=== PATIENT | male | born 1950 | race African-American/Black ===

== ENCOUNTER 2016-10-12 14:30 | Emergency (ER) | payer MEDICARE ==
[2016-10-12 14:54] VITALS: BP 165/98
--- NOTE | 2016-10-12 15:37 | ER Document Report ---
HPI - HPI Pain Level: 4 Notes: Patient is a 65-year-old male presents to the ED complaining of itchiness between his toes 1 month. Patient also states that he has had bilateral heel pain chronically with a history of a heel spur. He has been using ibuprofen with minimal relief, and he has tried some over the counter medication without any relief as well. Denies any injury. Patient states that he is able to ablate without any difficulties. On occasion he will noticed some swelling near the rashes. He has not noticed any purulent discharge. He still eating and drinking without any problems. Patient states that he does not go see a doctor does not have a PCM. Denies any drug allergies. He does not take any medications daily. Denies any significant past medical history otherwise or any surgeries. Patient does smoke but does not do any illicit drugs. He has been trying some Epsom salts soaks as well. Denies any fever, headaches, URI, sore throat, chest pain, palpitations, syncope, cough, wheeze, shortness of breath, abdominal pain, nausea/vomiting/diarrhea, dysuria, urinary retention, polyuria, polydipsia, hematuria, low back pain, loss of control bowel or bladder , muscle weakness/paralysis. - ROS Notes: REVIEW OF SYSTEMS: CONSTITUTIONAL : Denies fever, chills, or sweats. Denies recent illness. EENT: Denies eye, ear, throat, or mouth pain or symptoms. Denies nasal or sinus congestion or discharge. Denies throat, tongue, or mouth swelling or difficulty swallowing. CARDIOVASCULAR: Denies chest pain. Denies palpitations or racing or irregular heart beat. Denies ankle edema. RESPIRATORY: Denies cough, cold, or chest congestion. Denies shortness of breath, difficulty breathing, or wheezing. GASTROINTESTINAL: Denies abdominal pain or distention. Denies nausea, vomiting , or diarrhea. Denies blood in vomitus, stools, or per rectum. Denies black, tarry stools. Denies constipation. GENITOURINARY: Denies difficulty urinating, painful urination, burning, frequency, blood in urine, or discharge. MUSCULOSKELETAL: see hpi SKIN: see hpi NEUROLOGICAL: Denies confusion or altered mental status. Denies passing out or loss of consciousness. Denies dizziness or lightheadedness. Denies headache. Denies weakness or paralysis or loss of use of either side. Denies problems with gait or speech. Denies sensory loss, numbness, or tingling. Denies seizures. PSYCHIATRIC: Denies anxiety or stress. Denies depression, suicidal ideation, or homicidal ideation. ALL OTHER SYSTEMS REVIEWED AND NEGATIVE. Dictation was performed using [employer] voice recognition software - DERM Skin Color: Normal Past Medical History - Social History Smoking Status: Current Every Day Smoker Family History: Reviewed & Not Pertinent - Past Medical History Cardiac Medical History: Reports: Hx Hypertension Renal/ Medical History: Denies: Hx Peritoneal Dialysis - Immunizations Hx Diphtheria, Pertussis, Tetanus Vaccination: No Vertical Provider Document - CONSTITUTIONAL Agree With Documented VS: Yes Notes: PHYSICAL EXAMINATION: GENERAL: Well-appearing, well-nourished and in no acute distress. LUNGS: Breath sounds clear to auscultation bilaterally and equal. No wheezes rales or rhonchi. HEART: Regular rate and rhythm without murmurs, rubs, gallops. Musculoskeletal: LE's b/l: FROM to passive/active. Strength 5+/5. Extremities: No cyanosis, clubbing, or edema b/l. Peripheral pulses 2+. Capillary refill less than 3 seconds. NEUROLOGICAL: Cranial nerves grossly intact. Normal speech, normal gait. Normal sensory, motor exams PSYCH: Normal mood, normal affect. SKIN: b/l feet b/w 3-4th, 4-5th digits, + fungal infection. No purulent discharge, erythema, streaks, induration, or tenderness. - INFECTION CONTROL TRAVEL OUTSIDE OF THE [place] IN LAST 30 DAYS: No - RESPIRATORY O2 Sat by Pulse Oximetry: 97 Course - Re-evaluation Re-evalutation: 10/12/16 18:05 Patient is an afebrile, well-hydrated, 65-year-old male presents to the ED with tinea pedis bilaterally. Vitals are stable. PE otherwise unremarkable. Low suspicion for any systemic infection, septic joint, sepsis. I will cover him with clotrimazole to use as directed. Conservative measures otherwise for symptoms. Recheck/establish with PCM recheck in 1-2 weeks along with considering a consult from podiatry. Return to ED with any worsening/ concerning symptoms as reviewed in discharge. Patient is in agreement. - Vital Signs Vital signs: Temp Pulse Resp BP Pulse Ox 97.8 F 67 18 165/98 H 97 10/12/16 14:52 10/12/16 14:52 10/12/16 14:52 10/12/16 14:52 10/12/16 14:52 Discharge - Discharge Clinical Impression: Tinea pedis of both feet Condition: Stable Disposition: HOME, SELF-CARE Instructions: Athletes Foot ([facility]) Additional Instructions: Keep the feet clean epsom salt soaks Use cream as directed for 2 weeks Recheck with PCM in the next weeks (or clinics provided in the next 1-2 weeks) Return to the ED with any worsening symptoms and/or development of fever, headache, chest pain, palpitations, syncope, shortness of breath, trouble breathing, abdominal pain, n/v/d, muscle weakness/paralysis, numbness/tingling, or any abscess, purulent discharge, red streaks, other worsening symptoms that are concerning to you. Prescriptions: Clotrimazole [Athletic Foot Cream] 1 applic TP BID #30 gm Forms: Elevated Blood Pressure, Smoking Cessation Education Referrals: [facility] [Provider Group] - Follow up as needed [facility] [Provider Group] - Follow up as needed MODE ESTEVEZ DPM [ACTIVE STAFF] - Follow up as needed
== END 2016-10-12 15:50 | disposition home or self-care (01) ==
LOC: ER 14:30
DX: B35.3 Tinea pedis (principal); I10 Essential (primary) hypertension; F17.200 Nicotine dependence, unspecified, uncomplicated; Z87.39 Personal history of other diseases of the musculoskeletal system and connective tissue
CPT/HCPCS: 99283

== ENCOUNTER 2016-12-11 08:29 | Emergency (ER) | payer MEDICARE, MEDICAID ==
[2016-12-11] MEDS ORDERED: KETOROLAC TROMETHAMINE 60 MG/2 ML SDV IM ONE (09:09)
--- NOTE | 2016-12-11 11:00 | RADIOLOGY REPORT (SQ) ---
EXAM DESCRIPTION: ELBOW RIGHT OVER 2 VIEWS COMPLETED DATE/TIME: 12/11/2016 10:08 am REASON FOR STUDY: right elbow pain COMPARISON: None. NUMBER OF VIEWS: Four views of the right elbow. LIMITATIONS: None. FINDINGS: No acute fracture or bone lesion, subluxation or dislocation or effusion. Chronic calcifi cations medially and laterally consistent with epicondylitis. OTHER: No other significant finding. IMPRESSION: Chronic medial and lateral epicondylitis. TECHNICAL DOCUMENTATION: JOB ID: [id number]
--- NOTE | 2016-12-11 11:44 | ER Document Report ---
ED General - General Chief Complaint: Arm Pain Stated Complaint: ARM PAIN Time Seen by Provider: 12/11/16 09:01 TRAVEL OUTSIDE OF THE [place] IN LAST 30 DAYS: No - HPI Patient complains to provider of: Right elbow pain Notes: Patient coming in for evaluation of right elbow pain. Patient states is ongoing for approximately the past 2 weeks patient denies any trauma. Patient states is a recurring issue. Patient denies any overuse patient states he is currently retired. Patient denies any fevers chills nausea vomiting diarrhea denies any swelling or warmth at the site. - Related Data Allergies/Adverse Reactions: No Known Allergies Allergy (Verified 12/11/16 08:33) Past Medical History - Social History Smoking Status: Current Every Day Smoker Chew tobacco use (# tins/day): - 15 Frequency of alcohol use: Social Drug Abuse: None Family History: Reviewed & Not Pertinent - Past Medical History Cardiac Medical History: Reports: Hx Hypertension Renal/ Medical History: Denies: Hx Peritoneal Dialysis Surgical Hx: Negative - Immunizations Hx Diphtheria, Pertussis, Tetanus Vaccination: No Review of Systems - Review of Systems Constitutional: No symptoms reported EENT: No symptoms reported Cardiovascular: No symptoms reported Respiratory: No symptoms reported Gastrointestinal: No symptoms reported Genitourinary: No symptoms reported Male Genitourinary: No symptoms reported Musculoskeletal: Other - Right elbow pain Skin: No symptoms reported Hematologic/Lymphatic: No symptoms reported Neurological/Psychological: No symptoms reported Physical Exam - Vital signs Vitals: Temp Pulse Resp BP Pulse Ox 97.6 F 78 24 H 147/94 H 96 12/11/16 08:35 12/11/16 08:35 12/11/16 08:35 12/11/16 08:35 12/11/16 08:35 Interpretation: Normal - General General appearance: Appears well, Alert - HEENT Head: Normocephalic, Atraumatic Eyes: Normal Pupils: PERRL - Respiratory Respiratory status: No respiratory distress Chest status: Nontender Breath sounds: Normal Chest palpation: Normal - Cardiovascular Rhythm: Regular Heart sounds: Normal auscultation Murmur: No - Abdominal Inspection: Normal Distension: No distension Bowel sounds: Normal Tenderness: Nontender Organomegaly: No organomegaly - Back Back: Normal, Nontender - Extremities General upper extremity: Normal inspection, Tender - Tenderness to palpation of the right elbow along the lateral and medial epicondyles, Normal color, Normal ROM, Normal temperature. No: Nontender General lower extremity: Normal inspection, Nontender, Normal color, Normal ROM , Normal temperature, Normal weight bearing. No: Serafin's sign - Neurological Neuro grossly intact: Yes Cognition: Normal Orientation: AAOx4 Dave Coma Scale Eye Opening: Spontaneous [place] Coma Scale Verbal: Oriented Dave Coma Scale Motor: Obeys Commands [place] Coma Scale Total: 15 Speech: Normal Motor strength normal: LUE, RUE, LLE, RLE Sensory: Normal - Psychological Associated symptoms: Normal affect, Normal mood - Skin Skin Temperature: Warm Skin Moisture: Dry Skin Color: Normal Course - Re-evaluation Re-evalutation: 12/11/16 13:30 X-ray shows chronic epicondylitis which is consistent with the patient's examination. We will give Ultram for pain control and Motrin for anti- inflammatory. Patient was educated that he has chronic condition will need follow-up primary care physician patient states understanding patient will be discharged home. - Vital Signs Vital signs: Temp Pulse Resp BP Pulse Ox 97.8 F 62 15 167/97 H 100 12/11/16 11:56 12/11/16 11:56 12/11/16 11:56 12/11/16 11:56 12/11/16 11:56 Discharge - Discharge Clinical Impression: Medial epicondylitis Qualifiers: Laterality: right Qualified Code(s): M77.01 - Medial epicondylitis, right elbow Condition: Good Disposition: HOME, SELF-CARE Instructions: Tennis Elbow (Lateral Epicondylitis) ([facility]) Additional Instructions: Take medication as prescribed. Return to the ER symptoms worsen. Your x-ray shows that she has chronic inflammation of her elbow which will need to be followed and care forwarded by by primary care physician or orthopedic doctor. You may place ice packs on the elbow also to treat with heating pads. Prescriptions: Ibuprofen [Motrin 600 Mg Tablet] 600 mg PO TID #30 tablet Tramadol HCl [Ultram 50 mg Tablet] 50 mg PO ASDIR PRN #20 tablet PRN Reason: Forms: Return to Work
[2016-12-11 11:59] VITALS: BP 167/97
== END 2016-12-11 12:00 | disposition home or self-care (01) ==
LOC: ER 08:29
DX: M77.01 Medial epicondylitis, right elbow (principal); M25.521 Pain in right elbow; F17.210 Nicotine dependence, cigarettes, uncomplicated; I10 Essential (primary) hypertension
CPT/HCPCS: 99283; 96372; 73080; J1885

== ENCOUNTER 2017-03-01 02:24 | Emergency (ER) | payer MEDICARE, MEDICAID ==
[2017-03-01 02:36] VITALS: BP 151/87
[2017-03-01] MEDS ORDERED: ACETAMINOPHEN 325 MG TABLET PO ONE (02:55)
[2017-03-01] MEDS ORDERED: IBUPROFEN 600 MG TABLET PO ONE (02:55)
--- NOTE | 2017-03-01 03:00 | RADIOLOGY REPORT (SQ) ---
EXAM DESCRIPTION: ELBOW RIGHT OVER 2 VIEWS COMPLETED DATE/TIME: 03/01/2017 2:49 am REASON FOR STUDY: Pain s/p injury, fell on elbow yesterday. COMPARISON: Right elbow x-ray 12/11/2016. NUMBER OF VIEWS: Four views. TECHNIQUE: AP, lateral, and both oblique radiographic images acquired of the right elbow. LIMITATIONS: None. FINDINGS: MINERALIZATION: Normal. BONES: There is a linear lucency at the radial head, a nondisplaced fracture cannot be excluded. No other acute fracture or dislocation is seen. Chronic calcifications are again noted at the medial an d lateral distal humerus. JOINT: No effusion. SOFT TISSUES: The soft tissues are unremarkable. IMPRESSION: Linear lucency at the radial head, a nondisplaced fracture cannot be excluded. Please c orrelate with point tenderness. TECHNICAL DOCUMENTATION: JOB ID: [id number] [employer]- All Rights Reserved
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
[2017-03-01] MEDS ORDERED: HYDROCODONE/ACETAMINOPHEN 5-325 MG 6 TAB/DSPK PO PRN (03:46)
== END 2017-03-01 04:05 | disposition home or self-care (01) ==
LOC: ER 02:24
DX: S42.401A Unspecified fracture of lower end of right humerus, initial encounter for closed fracture (principal); Y09 Assault by unspecified means; M25.521 Pain in right elbow; I10 Essential (primary) hypertension
CPT/HCPCS: 99283; 73080; 29105; A9270 ×3

== ENCOUNTER 2018-12-08 09:37 | Emergency (ER) | payer MEDICARE, MEDICAID ==
[2018-12-08 09:47] VITALS: BP 135/80
[2018-12-08] MEDS ORDERED: DOXYCYCLINE HYCLATE 100 MG TABLET PO ONE (09:58)
[2018-12-08] MEDS ORDERED: CEPHALEXIN 500 MG CAPSULE PO ONE (10:00)
--- NOTE | 2018-12-08 10:04 | ER Document Report ---
HPI - HPI Patient complains to provider of: rash L leg Time Seen by Provider: 12/08/18 09:50 Pain Level: 5 Context: Pleasant, healthy 68-year-old male presents the emergency department with a rash on his anterior left leg over the herrera. Patient states that he thinks he got bit by something 2 days ago because he is been out of town for a couple of months and is the first time he slept in his bed. Patient states that it got acutely worse this morning. Patient states that it is tender to the touch, warm, and the redness has spread to the size of approximately 3 x 6 inches. Patient denies any fevers or chills, patient is able to bear weight on the leg, patient denies any posterior tenderness or circumferential redness, denies any unilateral leg swelling, denies any acute shortness of breath or chest pain. No other complaints - CONSTITUTIONAL Constitutional: DENIES: Fever, Chills Past Medical History - Social History Smoking Status: Current Every Day Smoker Chew tobacco use (# tins/day): No Drug Abuse: None Family History: Reviewed & Not Pertinent Patient has suicidal ideation: No Patient has homicidal ideation: No - Past Medical History Cardiac Medical History: Reports: Hx Hypertension Renal/ Medical History: Denies: Hx Peritoneal Dialysis - Immunizations Hx Diphtheria, Pertussis, Tetanus Vaccination: No Vertical Provider Document - CONSTITUTIONAL Notes: PHYSICAL EXAMINATION: Reviewed vital signs and charting by RN GENERAL: Alert, interacts well. No acute distress. HEAD: Normocephalic, atraumatic. EYES: Pupils equal and round. Extraocular movements intact. ENT: Oral mucosa moist, tongue midline. NECK: Full range of motion. Trachea midline. LUNGS: Clear to auscultation bilaterally, no wheezes, rales, or rhonchi. No respiratory distress. HEART: Regular rate and rhythm. No murmur ABDOMEN: soft, non-tender. No distention. Bowel sounds present EXTREMITIES: Moves all 4 extremities spontaneously. No edema, No cyanosis. PSYCH: Normal affect, normal mood. SKIN: Warm, dry, normal turgor. Approximately 3 inch x 6 inch area of erythema over the anterior left distal lower extremity that is tender to touch and warm to touch. No area of induration, no evidence of circumferential erythema or swelling. - INFECTION CONTROL TRAVEL OUTSIDE OF THE [place] IN LAST 30 DAYS: No Course - Re-evaluation Re-evalutation: 12/08/18 09:59 Patient presents with symptoms most consistent with an acute cellulitis. Vitals within normal limits. Patient does not meet sepsis criteria is overall very well in appearance. Exam and history are not consistent with DVT. Patient will be started on coverage for both staph and strep. At this time will discharge with return precautions and follow-up recommendations. Verbal discharge instructions given a the bedside and opportunity for questions given. Medication warnings reviewed. Patient is in agreement with this plan and has verbalized understanding of return precautions and the need for primary care follow-up in the next 24-72 hours. - Vital Signs Vital signs: Temp Pulse Resp BP Pulse Ox 98.2 F 95 16 135/80 H 100 12/08/18 09:45 12/08/18 09:45 12/08/18 09:45 12/08/18 09:45 12/08/18 09:45 Discharge - Discharge Clinical Impression: Cellulitis Qualifiers: Site of cellulitis: extremity Site of cellulitis of extremity: lower extremity Laterality: left Qualified Code(s): L03.116 - Cellulitis of left lower limb Condition: Good Disposition: HOME, SELF-CARE Additional Instructions: The rash is likely due to infection of your skin. You need to take the antibiotics as prescribed. Do not stop even if the rash goes away until you have completed all the antibiotics. The area of redness was traced out here in the emergency department with a marking pen. You need to return to emergency department if the redness spreads outside of this area by more than 2 cm in any direction. You should also return if you develop fevers with temperature greater than 101, persistent vomiting, worsening pain, or have any other symptoms that are concerning to you. Please follow-up with Dr. Ruiz Monday morning for a wound recheck. If you are unable to see him please return to the emergency department for a wound recheck.
== END 2018-12-08 10:09 | disposition home or self-care (01) ==
LOC: ER 09:37
DX: L03.116 Cellulitis of left lower limb (principal); F17.200 Nicotine dependence, unspecified, uncomplicated; I10 Essential (primary) hypertension
CPT/HCPCS: 99282; A9270 ×2

== ENCOUNTER 2018-12-12 12:57 | Emergency (ER) | payer MEDICARE, MEDICAID ==
--- NOTE | 2018-12-12 13:50 | ER Document Report ---
ED Medical Screen (RME) - General Chief Complaint: Leg Swelling Stated Complaint: LEG PAIN Time Seen by Provider: 12/12/18 13:46 Primary Care Provider: CYRUS ALEXIS MD [Primary Care Provider] - Follow up as needed Mode of Arrival: Ambulatory Information source: Patient Notes: This 68-year-old male presents emergency department with left lower leg anterior cellulitis. Patient believes may be a spider bit him. Patient has been to this emergency department into his provider treated with 2 different antibiotics and the erythema on the pain are spreading. Patient is not a diabetic. No complaints of fever vomiting. I have greeted and performed a rapid initial assessment of this patient. A comprehensive ED assessment and evaluation of the patient, analysis of test results and completion of the medical decision making process will be conducted by additional ED providers. Dictation of this chart was performed using voice recognition software; therefore, there may be some unintended grammatical errors. TRAVEL OUTSIDE OF THE [place] IN LAST 30 DAYS: No - Related Data Allergies/Adverse Reactions: No Known Allergies Allergy (Verified 12/12/18 12:57) Past Medical History - Social History Chew tobacco use (# tins/day): No Frequency of alcohol use: Heavy Drug Abuse: Cocaine - Past Medical History Cardiac Medical History: Reports: Hx Hypertension Renal/ Medical History: Denies: Hx Peritoneal Dialysis - Immunizations Hx Diphtheria, Pertussis, Tetanus Vaccination: No Physical Exam - Vital signs Vitals: Temp Pulse Resp BP Pulse Ox 98.4 F 88 18 152/77 H 94 12/12/18 13:00 12/12/18 13:00 12/12/18 13:00 12/12/18 13:00 12/12/18 13:00 Course - Vital Signs Vital signs: Temp Pulse Resp BP Pulse Ox 98.4 F 88 18 152/77 H 94 12/12/18 13:00 12/12/18 13:00 12/12/18 13:00 12/12/18 13:00 12/12/18 13:00 Doctor's Discharge - Discharge Referrals: CYRUS ALEXIS MD [Primary Care Provider] - Follow up as needed
--- NOTE | 2018-12-12 14:31 | RADIOLOGY REPORT (SQ) ---
EXAM DESCRIPTION: TIBIA FIBULA LEFT COMPLETED DATE/TIME: 12/12/2018 2:20 pm REASON FOR STUDY: infection pain COMPARISON: None. NUMBER OF VIEWS: Two views. TECHNIQUE: Two radiographic images acquired of the left tibia and fibula to include the knee and ank le in at least one projection. LIMITATIONS: None. FINDINGS: MINERALIZATION: Normal. BONES: No acute fracture or dislocation. No osteolysis. SOFT TISSUES: No swelling, subcutaneous emphysema, or radiopaque foreign body. OTHER: Vascular calcifications. IMPRESSION: No acute osseous abnormality of the left tibia and fibula. TECHNICAL DOCUMENTATION: JOB ID: [id number] [employer]- All Rights Reserved Reading location - IP/workstation name: [email or web address]
[2018-12-12 14:59] LABS: ABSOLUTE BASOPHILS # (AUTO) 0.1 10^3/uL (0.0-0.2); ABSOLUTE EOSINOPHILS # (AUTO) 0.2 10^3/uL (0.0-0.6); ABSOLUTE LYMPHOCYTES (AUTO) 1.3 10^3/uL (0.5-4.7); ABSOLUTE MONOCYTES (AUTO) 0.8 10^3/uL (0.1-1.4); BASOPHILS % (AUTO) 0.8 % (0-2); EOSINOPHILS % (AUTO) 2.3 % (0-6); HEMOGLOBIN 14.2 g/dL (13.5-17.0); LYMPHOCYTES % (AUTO) 17.4 % (13-45); MEAN CORPUSCULAR HEMOGLOBIN 27.3 pg (27.0-33.4); MEAN CORPUSCULAR VOLUME 83 fl (80-97); MONOCYTES % (AUTO) 10.4 % (3-13); PLATELET COUNT 313 10^3/uL (150-450); RED BLOOD COUNT 5.19 10^6/uL (4.35-5.55); RED CELL DISTRIBUTION WIDTH 14.9 % (11.5-14.0); SEGMENTED NEUTROPHILS % (AUTO) 69.1 % (42-78); TOTAL CELLS COUNTED % (AUTO) 100 %; WHITE BLOOD COUNT 7.2 10^3/uL (4.0-10.5)
[2018-12-12 15:46] LABS: ALBUMIN 4.2 g/dL (3.5-5.0); ALKALINE PHOSPHATASE 69 U/L (38-126); ANION GAP 9 (5-19); ASPARTATE AMINO TRANSFERASE 41 U/L (17-59); BILIRUBIN,DIRECT 0.1 mg/dL (0.0-0.4); BILIRUBIN,TOTAL 0.5 mg/dL (0.2-1.3); BLOOD UREA NITROGEN 11 mg/dL (7-20); CALCIUM 9.5 mg/dL (8.4-10.2); CARBON DIOXIDE 27 mmol/L (22-30); CHLORIDE 100 mmol/L (98-107); GLUCOSE 81 mg/dL (75-110); POTASSIUM 4.4 mmol/L (3.6-5.0); TOTAL PROTEIN 7.6 g/dL (6.3-8.2)
--- NOTE | 2018-12-12 16:26 | ER Document Report ---
HPI - HPI Time Seen by Provider: 12/12/18 13:46 Pain Level: 4 Notes: Patient is a 68-year-old male who presents for recheck of a cellulitis to his left lower anterior leg is been present for the past several days. Patient was seen 2 days ago and was started on antibiotics. Patient states that he has been taking them as directed. Patient states that he was told to come here for reevaluation by his family provider. Patient states that he feels well and is eating and drinking without difficulty. He is urinating normally and having normal bowel movements. Patient has not noticed any increasing pain to his leg. He has not noticed any significant expansion to his erythema as well. Contrary to triage noted, he has not noticed any significant changes in symptoms. He does continue to have soreness. Denies any headache, fever, neck pain, URI, sore throat, chest pain, palpitations, syncope, cough, shortness of breath, wheeze, dyspnea, abdominal pain, nausea/vomiting/diarrhea, urinary retention, dysuria, hematuria, loss of control of bowel or bladder, numbness/tingling, muscle paralysis/weakness. - ROS Systems Reviewed and Negative: Yes All other systems reviewed and negative Past Medical History - General Information source: Patient - Social History Smoking Status: Current Every Day Smoker Chew tobacco use (# tins/day): No Frequency of alcohol use: Heavy Drug Abuse: Cocaine Family History: Reviewed & Not Pertinent Patient has suicidal ideation: No Patient has homicidal ideation: No - Past Medical History Cardiac Medical History: Reports: Hx Hypertension Renal/ Medical History: Denies: Hx Peritoneal Dialysis - Immunizations Hx Diphtheria, Pertussis, Tetanus Vaccination: No Vertical Provider Document - CONSTITUTIONAL Agree With Documented VS: Yes Notes: PHYSICAL EXAMINATION: GENERAL: Well-appearing, well-nourished and in no acute distress. LUNGS: Breath sounds clear to auscultation bilaterally and equal. No wheezes rales or rhonchi. HEART: Regular rate and rhythm without murmurs, rubs, gallops. Musculoskeletal: Lt leg: FROM to passive/active. Strength 5+/5. Extremities: No cyanosis, clubbing, or edema b/l. Peripheral pulses 2+. Cap illary refill less than 3 seconds. NEUROLOGICAL: Cranial nerves grossly intact. Normal speech, normal gait. Normal sensory, motor exams PSYCH: Normal mood, normal affect. SKIN: Lt anterior leg: + erythema and warmth with mild tenderness. There is no fluctuance or induration. No posterior calf tenderness or involvement. Pulses 2+. The skin border was marked from visit 2 days ago and there is noticeable dec in erythema noted as there is about 1" separation from the marked skin to nearest point of erythema aside from the most inferior portion where is minimally goes past the line. No streaks. - INFECTION CONTROL TRAVEL OUTSIDE OF THE [place] IN LAST 30 DAYS: No Course - Re-evaluation Re-evalutation: 12/12/18 16:25 Patient is an afebrile, well-hydrated, 68-year-old male who presents to the ED with left anterior lower leg cellulitis that appears to be improving and does not meet admit criteria. Vitals are acceptable without any significant tachycardia, tachypnea, or hypoxia. PE is otherwise unremarkable for any neurovascular compromise, obvious tendon/ligament rupture, obvious fracture/dislocation, septic joint, DVT. Pt states that he feels 'good' and wants to go home at this time. Patient is nontoxic-appearing. Patient is able to ambulate and weight-bear. Labs unremarkable. No other labs or imaging warranted at this time based on H&P. Pt to continue his antibiotics at home. Conservative measures otherwise for symptoms. Recheck with your PCM in 2-3 days for wound check. Return to the ED with any worsening/concerning symptoms otherwise as reviewed in discharge. Patient is in agreement. - Vital Signs Vital signs: Temp Pulse Resp BP Pulse Ox 98.4 F 88 18 152/77 H 94 12/12/18 13:00 12/12/18 13:00 12/12/18 13:00 12/12/18 13:00 12/12/18 13:00 - Laboratory Result Diagrams: 12/12/18 14:27 12/12/18 14:27 Laboratory results interpreted by me: 12/12/18 12/12/18 14:27 14:27 RDW 14.9 H Sodium 136.3 L Creatinine 1.30 H Est GFR (MDRD) Non-Af 55 L Discharge - Discharge Clinical Impression: Left leg cellulitis Condition: Stable Disposition: HOME, SELF-CARE Additional Instructions: Keep the skin clean Wash with soap and water Tylenol/ibuprofen if needed Triple antibiotic ointment daily Take medication as directed Monitor for any worsening symptoms Recheck with your PCM in 2-3 days for wound check* Return to the ED with any worsening symptoms and/or development of fever, headache, chest pain, palpitations, syncope, shortness of breath, trouble br eathing, abdominal pain, n/v/d, abscess, purulent discharge, red streaks, worsening swelling, or other worsening symptoms that are concerning to you. Forms: Elevated Blood Pressure, Smoking Cessation Education Referrals: CYRUS ALEXIS MD [Primary Care Provider] - 12/14/18
[2018-12-12 16:49] VITALS: BP 168/86
== END 2018-12-12 16:49 | disposition home or self-care (01) ==
LOC: ER 12:57
DX: L03.116 Cellulitis of left lower limb (principal); F17.200 Nicotine dependence, unspecified, uncomplicated; I10 Essential (primary) hypertension
CPT/HCPCS: 36415; 80053; 85025

== ENCOUNTER 2019-04-15 10:44 | Day surgery (SDC) | payer MEDICARE, MEDICAID ==
[~2019-04-15 10:44] MED LIST: PROPOFOL INJ 200 MG/20 ML VIAL IV ONE
--- NOTE | 2019-04-15 13:04 | Operative Report ---
Operative Report DATE OF SURGERY: 04/15/19 Operative Report: The risks, benefits and alternatives of the procedure including the risk of bleeding, perforation requiring surgery have been explained to the patient in detail and informed consent has been obtained. Patient is placed on left, lateral decubital position. Timeout was called. Propofol medication is administered. Rectal examination is done which did not reveal any masses, tears or fissures. An Olympus videoscope was carefully introduced into the patient's rectum. The scope was then carefully advanced all the way to the cecum. The cecum was identified by the usual anatomical landmarks of the ileocecal valve as well as the appendiceal office. Photodocumentation is obtained. The scope was then sequentially pulled back via the various segments of the colon including the ascending colon, hepatic flexure, transverse colon, splenic flexure, descen ding colon and finally into the rectosigmoid portions of the colon. Retroflexion maneuver is performed. PREOPERATIVE DIAGNOSIS: Colorectal cancer screening POSTOPERATIVE DIAGNOSIS: Sessile rectal polyp that was removed via snare polypectomy and retrieved. Sigmoid polypremoved via snare polypectomy and retrieved. Internal hemorrhoids OPERATION: Colonoscopy with snare polypectomy SURGEON: NEGRA VELEZ ANESTHESIA: LMAC TISSUE REMOVED OR ALTERED: As noted above. COMPLICATIONS: None. ESTIMATED BLOOD LOSS: None. INTRAOPERATIVE FINDINGS: As noted above. PROCEDURE: Patient tolerated the procedure well. No immediate postprocedure complications are noted. Patient is discharged in good condition. Discharge date 04/15/2019. Discharge diet: Regular. Discharge activity: Regular. 2 to 3-week follow-up to discuss findings. Patient is instructed to call the office or proceed to the emergency room should there be any further problems or questions. Wait on the pathology. Given the size of the rectal polyp I would perform surveillance in 1 year.
[2019-04-15 13:35] VITALS: BP 142/90
== END 2019-04-15 13:30 | disposition home or self-care (01) ==
LOC: END 10:44
PROVIDERS: ATTEND Internal Medicine Gastroenterology
DX: Z12.11 Encounter for screening for malignant neoplasm of colon (principal); D12.8 Benign neoplasm of rectum; K64.8 Other hemorrhoids; F17.210 Nicotine dependence, cigarettes, uncomplicated
CPT/HCPCS: 45380; 45385; 88305 ×2; 00812; J2704; 812